=== PATIENT | female | born 1990 | race Caucasian/White ===

== ENCOUNTER 2020-11-25 15:40 | Day surgery (SDC) | payer OTHER ==
[~2020-11-25] VITALS: Ht 162.6 cm; Wt 62.7 kg
[~2020-11-25 15:40] MED LIST: no home meds
[2020-11-25 16:13] VITALS: BP 130/87
[2020-11-25 16:18] VITALS: BP 130/87
[2020-11-25] MEDS ORDERED: PNV1TAB.5 PO (16:22)
[2020-11-25 16:24] LABS: BASOPHILS % (AUTO) 1 % (0-1); EOSINOPHILS % (AUTO) 2 % (1-7); LYMPHOCYTES % (AUTO) 35 % (22-44); MEAN CORPUSCULAR HEMOGLOBIN 32.6 pg (27.0-34.8); MEAN CORPUSCULAR HGB CONC 34.9 g/dL (32.4-35.8); MONOCYTES % (AUTO) 6 % (2-9); NEUTROPHILS % (AUTO) 58 % (42-75); PLATELET COUNT 295 x10^3/uL (130-400); RED BLOOD COUNT 4.33 x10^6/uL (3.82-5.3); RED CELL DISTRIBUTION WIDTH 12.2 % (9.6-15.2)
[2020-11-25] MEDS ORDERED: CHLORHEXIDINE 15 ML UDC ONE (16:24)
[2020-11-25] MEDS ORDERED: LACTATED RINGERS 1,000 ML IV SCH (16:30)
[2020-11-25] MEDS ORDERED: CHLORHEXIDINE 15 ML UDC PO ONE (16:30)
[2020-11-25 16:34] LABS: ANION GAP 7 mmol/L (5-15); CALCIUM 9.1 mg/dL (8.5-10.1); CHLORIDE 106 mmol/L (98-107); CREATININE 0.53 mg/dL (0.55-1.02)
[2020-11-25] MEDS ORDERED: FENTANYL PF 100 MCG/2ML ONE (18:08)
[2020-11-25] MEDS ORDERED: MIDAZOLAM 1 MG/ML, 2ML ONE (18:08)
[2020-11-25] MEDS ORDERED: ONDANSETRON 2MG/ML, 2ML ONE (18:09)
[2020-11-25] MEDS ORDERED: DEXAMETHASONE 4 MG/ML, 1ML ONE (18:09)
[2020-11-25] MEDS ORDERED: LIDOCAINE-MPF 2% ,5ML ONE (18:09)
[2020-11-25] MEDS ORDERED: SUCCINYLCHOLINE 20 MG/ML, 10ML ONE (18:09)
[2020-11-25] MEDS ORDERED: PROPOFOL 10 MG/ML, 20ML ONE (18:09)
[2020-11-25] MEDS ORDERED: MISOPROSTOL 200 MCG TABLET ONE (18:22)
[2020-11-25] MEDS ORDERED: OXYTOCIN 10 UNITS/ML, 1ML ONE (18:22)
[2020-11-25] MEDS ORDERED: SODIUM CHLORIDE 0.9% 0 ML ONE (18:22)
[2020-11-25] MEDS ORDERED: METHYLERGONOVINE 0.2 MG/ML IM ONE (18:22)
[2020-11-25] MEDS ORDERED: VASOPRESSIN 20 UNIT/ML, 1ML ONE (18:23)
[2020-11-25] MEDS ORDERED: SILVER NITRATE STICK TP ONE (18:23)
[2020-11-25] MEDS ORDERED: HYDROmorphone 1 MG/ML, 1ML INJ IVPush PRN (18:30)
[2020-11-25] MEDS ORDERED: ACETAMINOPHEN 325 MG TABLET PO PRN (18:30)
[2020-11-25] MEDS ORDERED: PROMETHAZINE 25 MG/ML, 1ML IVPush PRN (18:30)
[2020-11-25] MEDS ORDERED: hydrALAzine 20 MG/ML, 1ML IV PRN (18:30)
[2020-11-25] MEDS ORDERED: ONDANSETRON 2MG/ML, 2ML IVPush PRN (18:30)
[2020-11-25] MEDS ORDERED: OXYcodone 5 MG/5 ML ORAL.SOL UDC PO PRN (18:30)
[2020-11-25] MEDS ORDERED: EPHEDRINE 50 MG/ML, 1ML IVPush PRN (18:30)
[2020-11-25] MEDS ORDERED: LABETALOL 5MG/ML, 20ML IV PRN (18:30)
[2020-11-25] MEDS ORDERED: FENTANYL PF 100 MCG/2ML IV PRN (18:30)
[2020-11-25] MEDS ORDERED: CEFAZOLIN 1,000 MG ONE ×2 (18:39)
== END 2020-11-25 19:45 | disposition home or self-care (01) ==
LOC: OR 15:40
PROVIDERS: ATTEND Obstetrics & Gynecology Maternal & Fetal Medicine
DX: O02.0 Blighted ovum and nonhydatidiform mole (principal); Z90.49 Acquired absence of other specified parts of digestive tract; Z98.890 Other specified postprocedural states
CPT/HCPCS: 36415; 59820; 80048; 85025; 86850; 86900; 88305; J0330; J0690; J1100; J2250; J2405; J2704; J3010; J7120; J2210; J2590